=== PATIENT | female | born 1985 | race Caucasian/White ===

== ENCOUNTER 2025-01-11 09:54 | Inpatient (IN) | payer BC ==
[2025-01-16] MEDS ORDERED: Sodium Chloride 0.9% 2.5 ML Syringe FLUSH PRN (09:43)
[2025-01-16] MEDS ORDERED: Water For Irrigation,Sterile 1,000 ML Container IRR PRN (09:43)
[2025-01-16] MEDS ORDERED: Lidocaine 1% 50 ML MDV INJECT PRN (09:43)
[2025-01-16] MEDS ORDERED: Misoprostol 200 MCG Tab PO PRN (09:43)
[2025-01-16] MEDS ORDERED: Tranexamic Acid in NACL,ISO-OS 1,000 MG in Premix Bag 1 BAG IV PRN (09:43)
[2025-01-16] MEDS ORDERED: Methylergonovine 0.2 MG/1 ML Amp IM PRN (09:43)
[2025-01-16] MEDS ORDERED: Carboprost Tromethamine 250 MCG/1 mL Vial IM PRN (09:43)
[2025-01-16] MEDS ORDERED: Sodium Chloride 0.9% 20 ML SDV IV PRN (09:43)
[2025-01-16] MEDS ORDERED: Sodium Chloride 0.9% 10 ML Syringe FLUSH PRN (09:43)
[2025-01-16] MEDS ORDERED: ePHEDrine 50 MG/ML SDV IVPUSH PRN (10:06)
[2025-01-16] MEDS: Lactated Ringers 1,000 ML IV SCH (10:10)
[2025-01-16] MEDS ORDERED: dexmedeTOMIDine HCl 200 MCG/2 ML SDV EPIDUR SCH (10:15)
[2025-01-16] MEDS: Misoprostol 25 MCG (1/4 of 100 MCG) Tab VAG PRN (10:42)
[2025-01-16 11:06] LABS: HEMATOCRIT 48.4 % (37.0-47.0); HEMOGLOBIN 16.9 g/dL (12.0-16.0); MEAN CORPUSCULAR HEMOGLOBIN 29.4 pg (28.0-32.0); MEAN CORPUSCULAR HGB CONC 34.9 g/dL (32.0-36.0); MEAN CORPUSCULAR VOLUME 84.2 fL (83.0-99.0); MEAN PLATELET VOLUME 10.7 fL (9.4-12.3); PLATELET COUNT,PLT 241 K/uL (150-400); RED BLOOD CELL COUNT 5.75 M/uL (4.10-5.30)
[2025-01-16] MEDS: levETIRAcetam 500 MG Tab PO SCH (22:04)
[2025-01-16] MEDS: Terbutaline 1 MG/ML SDV SUBCUT PRN (23:50)
[2025-01-17] MEDS: Oxytocin/0.9 % Sodium Chloride 30 UNIT/500 ML BAG IV SCH ×2 (01:06→17:20)
[2025-01-17] MEDS: Butorphanol 2 MG/ML SDV IVPUSH PRN (05:03)
[2025-01-17] MEDS: Ropivacaine HCl/PF 400 MG in Premix Bag 1 BAG EPIDUR SCH (06:57)
[2025-01-17] MEDS: Ondansetron 4 MG/2 ML SDV IVPUSH PRN (07:11)
[2025-01-17] MEDS: Phenylephrine HCl In 0.9% NaCl 1 MG/10 ML Syringe IVPUSH PRN (07:14)
[2025-01-17] MEDS ORDERED: Oxytocin/0.9 % Sodium Chloride 30 UNIT/500 ML BAG IV SCH (10:30)
[2025-01-17] MEDS ORDERED: Lanolin 100% Cream 7 GM Tube TOP PRN (17:50)
[2025-01-17] MEDS ORDERED: oxyCODONE 5 MG Tab PO PRN (17:50)
[2025-01-17] MEDS ORDERED: Acetaminophen 500 MG Tab PO PRN (17:50)
[2025-01-17 18:08] LABS: PH,UMBILICAL ARTERIAL 7.175 (7.18-7.38)
[2025-01-17 18:09] LABS: PH,UMBILICAL VENOUS 7.321 (7.25-7.45)
[2025-01-18] MEDS: Ibuprofen 800 MG Tab PO PRN (05:28)
[2025-01-18] MEDS: Benzocaine/Menthol 20%-0.5% Spray 78 GM Cannister TOP PRN (05:30)
[2025-01-18] MEDS: Witch Hazel Medicated Pads 40/Jar TOP PRN (05:30)
[2025-01-18 05:54] LABS: HEMATOCRIT 26.6 % (37.0-47.0)
[2025-01-18] MEDS: Docusate Sodium 100 MG Cap PO PRN (12:38)
[2025-01-18] MEDS: Hydrocortisone 2.5% Crm 30 GM Tube TOP PRN (12:39)
[2025-01-18] MEDS: Measles, Mumps & Rubella Vaccine 0.5 ML SDV SUBCUT ONE (21:12)
== END 2025-01-18 22:00 | disposition home or self-care (01) | DRG 560 ==
LOC: MW.OB 09:54 → OBSVTOIN 01-16 09:22 → MW.OB 01-16 09:52
PROVIDERS: ADMIT Obstetrics & Gynecology; ATTEND Obstetrics & Gynecology
PROC: 10E0XZZ Delivery of Products of Conception, External Approach (ICD-10-PCS; principal; 2025-01-17)
PROC: 0HQ9XZZ Repair Perineum Skin, External Approach (ICD-10-PCS; 2025-01-17)
PROC: 3E0P7VZ Introduction of Hormone into Female Reproductive, Via Natural or Artificial Opening (ICD-10-PCS; 2025-01-17)
PROC: 3E033VJ Introduction of Other Hormone into Peripheral Vein, Percutaneous Approach (ICD-10-PCS; 2025-01-17)
DX: O48.0 Post-term pregnancy (principal); Z37.0 Single live birth; O32.1XX0 Maternal care for breech presentation, not applicable or unspecified; O99.354 Diseases of the nervous system complicating childbirth; G40.909 Epilepsy, unspecified, not intractable, without status epilepticus; Z3A.41 41 weeks gestation of pregnancy; Z90.89 Acquired absence of other organs; Z98.890 Other specified postprocedural states; O77.0 Labor and delivery complicated by meconium in amniotic fluid
CPT/HCPCS: 01967; 36415; 51702; 59025; 59409; 82803; 85014; 85018; 85027; 86592; 86850; 86900; 86901; 90707; A9270-GY; J0595; J2371; J2405; J2590; J2795; J7120